=== PATIENT | male | born 1935 | race Caucasian/White ===

== ENCOUNTER → 2018-01-13 06:52 | Outpatient (CLI) | payer MEDICARE, SELFPAY ==
[2018-01-13 09:23] LABS: Add Manual Diff / Slide Review NO; Basophils Percent Auto 0.4 % (0-2); Eosinophils Percent Auto 3.7 % (2-4); Hematocrit 38.9 % (41-53); Hemoglobin 13.2 g/dL (13.5-17.5); Mean Corpuscular HGB Conc 33.8 % (30-36); Mean Corpuscular Hemoglobin 32.3 PG (26-34); Mean Corpuscular Volume 95.4 fL (80-100); Monocytes Percent Auto 7.8 % (3-14); Neutrophils Absolute Auto 3900 /uL (3000-5900); Neutrophils Percent Auto 66.1 % (50-75); Platelet Count 112 X10^3/uL (150-400); Red Blood Cell Count 4.08 X10^6/uL (4.5-5.9); Red Cell Distribution Width 13.2 % (11.6-14.8); White Blood Cell Count 5.8 X10^3/uL (4.5-11.0)
[2018-01-13 09:28] LABS: Alanine Aminotransferase 39 IU/L (21-72); Albumin 4.2 g/dL (3.5-5.0); Albumin Globulin Ratio 1.4 (1.0-2.8); Alkaline Phosphatase 72 U/L (38-126); BUN Creatinine Ratio 23.6 (6-22); Bilirubin Total 0.7 mg/dL (0.2-1.3); Blood Urea Nitrogen 26 mg/dL (9-20); Calcium 8.4 mg/dL (8.4-10.2); Carbon Dioxide 27 mmol/L (22-32); Chloride 107 mmol/L (98-107); Cholesterol 119 mg/dL (140-199); Estimated Glomerular Filt Rate > 60.0 mL/min (>60); Globulin 2.9 g/dL (1.7-4.1); Glucose 80 mg/dL (80-110); HDL Cholesterol 51 mg/dL (40-60); LDL Cholesterol Calculated 51 mg/dL (<100); Sodium 145 mmol/L (137-145); Total Protein 7.1 g/dL (6.3-8.2); Triglycerides 83 mg/dL (35-150); Uric Acid 5.8 mg/dL (3.5-8.5)
[2018-01-13 09:30] LABS: Aspartate Aminotransferase 34 IU/L (17-59); HEMOLYSIS 57 (0-50); Potassium 4.5 mmol/L (3.4-5.1)
== END ==
PROVIDERS: PCP Internal Medicine; Visit Provider Internal Medicine
DX: M81.0 Age-related osteoporosis without current pathological fracture (principal); E78.00 Pure hypercholesterolemia, unspecified; I10 Essential (primary) hypertension
CPT/HCPCS: 36415; 80053; 80061; 84550; 85025

== ENCOUNTER → 2019-08-29 15:40 | Outpatient (ROUT) | payer MEDICARE, SELFPAY ==
[2019-08-29 15:57] LABS: Add Manual Diff / Slide Review NO; Basophils Absolute Auto 0 /uL (0-100); Basophils Percent Auto 0.4 % (0-2); Eosinophils Absolute Auto 200 /uL (0-450); Eosinophils Percent Auto 2.8 % (2-4); Hematocrit 40.9 % (41-53); Lymphocytes Absolute Auto 1300 /uL (1100-4500); Lymphocytes Percent Auto 20.1 % (25-40); Mean Corpuscular HGB Conc 34.2 % (30-36); Mean Corpuscular Hemoglobin 32.3 PG (26-34); Mean Corpuscular Volume 94.4 fL (80-100); Monocytes Absolute Auto 400 /uL (0-900); Monocytes Percent Auto 6.5 % (3-14); Neutrophils Absolute Auto 4700 /uL (1500-7000); Neutrophils Percent Auto 70.2 % (50-75); Platelet Count 116 X10^3/uL (150-400); Red Blood Cell Count 4.33 X10^6/uL (4.5-5.9); Red Cell Distribution Width 12.9 % (11.6-14.8); White Blood Cell Count 6.7 X10^3/uL (4.5-11.0)
[2019-08-29 17:08] LABS: Aspartate Aminotransferase 24 IU/L (17-59); Blood Urea Nitrogen 32 mg/dL (9-20); Calcium 9.1 mg/dL (8.4-10.2); Carbon Dioxide 27 mmol/L (22-32); Chloride 104 mmol/L (98-107); Cholesterol 119 mg/dL (140-199); Estimated Glomerular Filt Rate 41.6 mL/min (>60); Glucose 94 mg/dL (80-110); HDL Cholesterol 41 mg/dL (40-60); HEMOLYSIS < 15 (0-50); LDL Cholesterol Calculated 41 mg/dL (<100); Potassium 3.9 mmol/L (3.4-5.1); Sodium 142 mmol/L (137-145); Triglycerides 183 mg/dL (35-150)
== END ==
PROVIDERS: Family Provider Internal Medicine; PCP Internal Medicine; Visit Provider Internal Medicine
DX: I10 Essential (primary) hypertension (principal); E78.2 Mixed hyperlipidemia; D69.6 Thrombocytopenia, unspecified
CPT/HCPCS: 80048; 80061; 84450; 85025

== ENCOUNTER → 2020-10-30 18:44 | Outpatient (ROUT) | payer MEDICARE, SELFPAY ==
[2020-10-30 19:37] LABS: Add Manual Diff / Slide Review NO; Basophils Absolute Auto 0 /uL (0-100); Basophils Percent Auto 0.4 % (0-2); Eosinophils Absolute Auto 100 /uL (0-450); Eosinophils Percent Auto 1.6 % (2-4); Hematocrit 40.2 % (41-53); Hemoglobin 13.6 g/dL (13.5-17.5); Lymphocytes Absolute Auto 1300 /uL (1100-4500); Lymphocytes Percent Auto 15.4 % (25-40); Mean Corpuscular HGB Conc 33.8 % (30-36); Mean Corpuscular Hemoglobin 32.2 PG (26-34); Mean Corpuscular Volume 95.2 fL (80-100); Monocytes Absolute Auto 600 /uL (0-900); Monocytes Percent Auto 7.3 % (3-14); Neutrophils Absolute Auto 6200 /uL (1500-7000); Neutrophils Percent Auto 75.3 % (50-75); Platelet Count 127 X10^3/uL (150-400); Red Blood Cell Count 4.22 X10^6/uL (4.5-5.9); White Blood Cell Count 8.3 X10^3/uL (4.5-11.0)
[2020-10-30 19:46] LABS: Aspartate Aminotransferase 28 IU/L (17-59); BUN Creatinine Ratio 23.5 (6-22); Blood Urea Nitrogen 31 mg/dL (9-20); Calcium 9.1 mg/dL (8.4-10.2); Carbon Dioxide 29 mmol/L (22-32); Chloride 106 mmol/L (98-107); Cholesterol 121 mg/dL (140-199); Estimated Glomerular Filt Rate 51.8 mL/min (>60); Glucose 93 mg/dL (80-110); HDL Cholesterol 53 mg/dL (40-60); HEMOLYSIS < 15 (0-50); LDL Cholesterol Calculated 33 mg/dL (<100); Phosphorous 3.1 mg/dL (2.3-3.7); Potassium 4.6 mmol/L (3.4-5.1); Sodium 143 mmol/L (137-145); Triglycerides 175 mg/dL (35-150)
[2020-10-31 09:38] LABS: Parathyroid Hormone Int 222 pg/mL (15-65)
== END ==
PROVIDERS: Family Provider Internal Medicine; PCP Internal Medicine; Visit Provider Internal Medicine
DX: N18.30 Chronic kidney disease, stage 3 unspecified (principal); E78.2 Mixed hyperlipidemia
CPT/HCPCS: 80048; 80061; 83970; 84100; 84450; 85025

== ENCOUNTER → 2021-05-16 15:37 | Outpatient (CLI) | payer MEDICARE, SELFPAY ==
[2021-05-16 16:25] LABS: COVID19 -Nasal RAPID Negative (Negative)
== END ==
PROVIDERS: Family Provider Internal Medicine; PCP Internal Medicine; Visit Provider Nurse Practitioner
DX: J02.9 Acute pharyngitis, unspecified (principal); Z20.822 Contact with and (suspected) exposure to COVID-19
CPT/HCPCS: 87070; 87635

== ENCOUNTER → 2021-09-23 11:22 | Outpatient (CLI) | payer MEDICARE, SELFPAY ==
[2021-09-23 16:53] LABS: COVID19 -Nasal RAPID Negative (Negative)
== END ==
PROVIDERS: Family Provider Internal Medicine; PCP Internal Medicine; Visit Provider Student in an Organized Health Care Education/Training Program
DX: Z20.822 Contact with and (suspected) exposure to COVID-19 (principal)
CPT/HCPCS: 87635

== ENCOUNTER → 2022-03-30 09:34 | Outpatient (CLI) | payer MEDICARE, SELFPAY ==
--- NOTE | 2022-03-30 | DI.US.S_ITS ---
PROCEDURE: US RENAL COMPLETE INDICATIONS: Secondary hyperparathyroidism of renal origin TECHNIQUE: Real-time scanning was performed of the kidneys and bladder, with image documentation. COMPARISON: None. FINDINGS: Kidneys: Right kidney measures 10.2 cm. Left kidney measures 10.8 cm. No right hydronephrosis. Normal right cortical thickness. Normal left cortical thickness. Simple appearing left renal cysts measuring up to 1.3 cm. There is a left 7 mm mid region nonobstructing calculus. Bladder: Not well seen due to under distention. Miscellaneous: No free pelvic fluid. IMPRESSION: No hydronephrosis bilaterally. Left 7 mm mid region nonobstructing calculus. Bladder is not well seen due to underdistention. Dictated by: Turner Doyle M.D. on 03/30/2022 at 12:29 Approved by: Turner Doyle M.D. on 03/30/2022 at 12:36
== END ==
PROVIDERS: Family Provider Internal Medicine; PCP Internal Medicine; Referring Provider Internal Medicine; Visit Provider Internal Medicine
DX: N25.81 Secondary hyperparathyroidism of renal origin (principal); N18.30 Chronic kidney disease, stage 3 unspecified; N20.0 Calculus of kidney
CPT/HCPCS: 76770

== ENCOUNTER → 2022-05-14 13:28 | Outpatient (CLI) | payer MEDICARE, SELFPAY ==
[2022-05-14 13:50] LABS: COVID19 -Nasal RAPID Negative (Negative)
== END ==
PROVIDERS: Family Provider Internal Medicine; PCP Internal Medicine; Visit Provider Student in an Organized Health Care Education/Training Program
DX: Z20.822 Contact with and (suspected) exposure to COVID-19 (principal)
CPT/HCPCS: 87635

== ENCOUNTER → 2022-05-15 10:27 | Outpatient (CLI) | payer MEDICARE, SELFPAY ==
--- NOTE | 2022-05-15 10:28 | DI.RAD.S_ITS ---
PROCEDURE: XR CHEST 2V INDICATIONS: chest pain on breathing TECHNIQUE: 2 views of the chest were acquired. COMPARISON: [facility], , CHEST 2 VIEW, 04/09/2015, 10:18. FINDINGS: Surgical changes and devices: None. Lungs and pleura: Left hemidiaphragm elevation and left basilar atelectasis. No focal consolidation. No pleural effusions or pneumothorax. Mediastinum: Mediastinal contours are normal. Heart size is normal. Bones and chest wall: No suspicious bony abnormalities. Soft tissues appear unremarkable. IMPRESSION: 1. No acute cardiopulmonary disease. 2. Left hemidiaphragm elevation and left basilar atelectasis. Dictated by: Valente Llanos M.D. on 05/15/2022 at 10:42 Approved by: Valente Llanos M.D. on 05/15/2022 at 10:43
[2022-05-15 11:20] LABS: Add Manual Diff / Slide Review NO; Basophils Absolute Auto 0 /uL (0-100); Basophils Percent Auto 0.3 % (0-2); Eosinophils Absolute Auto 0 /uL (0-450); Eosinophils Percent Auto 0.4 % (2-4); Hematocrit 38.8 % (41-53); Hemoglobin 12.8 g/dL (13.5-17.5); Lymphocytes Absolute Auto 1300 /uL (1100-4500); Lymphocytes Percent Auto 11.8 % (25-40); Mean Corpuscular Hemoglobin 31.2 PG (26-34); Mean Corpuscular Volume 94.8 fL (80-100); Monocytes Absolute Auto 1400 /uL (0-900); Neutrophils Absolute Auto 8500 /uL (1500-7000); Neutrophils Percent Auto 75.5 % (50-75); Platelet Count 139 X10^3/uL (150-400); Red Blood Cell Count 4.09 X10^6/uL (4.5-5.9); White Blood Cell Count 11.2 X10^3/uL (4.5-11.0)
[2022-05-15 11:25] LABS: Hematocrit 37.9 % (41-53); Hemoglobin 12.7 g/dL (13.5-17.5)
[2022-05-15 11:38] LABS: Alanine Aminotransferase 12 IU/L (<50); Albumin 4.2 g/dL (3.5-5.0); Albumin Globulin Ratio 1.2 (1.0-2.8); Alkaline Phosphatase 89 U/L (38-126); Aspartate Aminotransferase 18 IU/L (17-59); Bilirubin Total 1.3 mg/dL (0.2-1.3); Blood Urea Nitrogen 38 mg/dL (9-20); Carbon Dioxide 26 mmol/L (22-32); Chloride 101 mmol/L (98-107); Creatine Kinase 55 U/L (55-170); Estimated Glomerular Filt Rate 36 mL/min (>60); Globulin 3.4 g/dL (1.7-4.1); Glucose 96 mg/dL (80-110); HEMOLYSIS < 15 (0-50); Potassium 4.8 mmol/L (3.4-5.1); Sodium 139 mmol/L (137-145); Total Protein 7.6 g/dL (6.3-8.2)
[2022-05-15 11:48] LABS: NT-proBNP (BNP-Adult 18+) 2010 pg/mL (<450); Troponin I 0.039 ng/mL (0.01-0.034)
[2022-05-15 12:18] LABS: BUN Creatinine Ratio 20.8 (6-22); Blood Urea Nitrogen 37 mg/dL (9-20); Calcium 9.1 mg/dL (8.4-10.2); Carbon Dioxide 26 mmol/L (22-32); Chloride 102 mmol/L (98-107); Estimated Glomerular Filt Rate 37 mL/min (>60); Glucose 93 mg/dL (80-110); HEMOLYSIS < 15 (0-50); Potassium 4.5 mmol/L (3.4-5.1); Sodium 140 mmol/L (137-145)
[2022-05-15 12:19] LABS: Creatinine Urine Random 222.3 mg/dL; Protein (Total) Urine Random 10 mg/dL (0-12); Protein Creatinine Ratio Urine 0.04 GRAM/24H
== END ==
PROVIDERS: Family Provider Internal Medicine; PCP Internal Medicine; Referring Provider Student in an Organized Health Care Education/Training Program; Visit Provider Student in an Organized Health Care Education/Training Program
DX: R07.1 Chest pain on breathing (principal); J98.11 Atelectasis; R53.83 Other fatigue
CPT/HCPCS: 36415; 71046; 80048; 80053; 82550; 82570; 83880; 84156; 84484; 85014; 85018; 85025

== ENCOUNTER 2022-05-16 09:26 | Observation (INO) | payer MEDICARE, SELFPAY ==
[2022-05-16] VITALS (14 sets, daily range): BP systolic 103–140; BP diastolic 49–67; PULSE 63–73; RESP 16–27; TEMP 36.4–37.2; O2SAT 96–100; BMI 29.1
--- NOTE | 2022-05-16 10:03 | ED.CHESTPAIN ---
HPI - Chest Pain General Chief Complaint: Chest Pain Stated Complaint: Told to come per his lab results Time Seen by Provider: 05/16/22 09:33 Source: patient Mode of arrival: Ambulatory Limitations: no limitations Limitations: no limitations History of Present Illness HPI narrative: The patient presents with recent episode of chest discomfort. He awoke 2 mornings ago, with upper chest tightness. He was not having dyspnea, cough, URI symptoms, fever or chills. He has a history of hypertension, and hyperlipidemia. He has no history of CAD, CHF or arrhythmia. He also has history of renal insufficiency. He was seen to walk-in clinic, ER evaluation was suggested, but declined by the patient. Labs were drawn. He had a minimally elevated troponin. At the encouragement of walk-in clinic, he is here now for repeat evaluation. He says he feels fine today. He has no chest discomfort, no dyspnea, no palpitations. He has no orthopnea and no peripheral edema. He denies GI symptoms. He has no rashes. He is oriented, he is a good historian. Related Data Home Medications Medication Instructions Recorded Confirmed allopurinol 100 mg tablet 100 mg PO DAILY 05/16/22 05/16/22 losartan 50 mg-hydrochlorothiazide 1 tab PO DAILY 05/16/22 05/16/22 12.5 mg tablet simvastatin 40 mg tablet 40 mg PO DAILY 05/16/22 05/16/22 Allergies Allergy/AdvReac Type Severity Reaction Status Date / Time Penicillins Allergy Intermediate hives Verified 05/14/22 13:05 Review of Systems Review of Systems ROS Unobtainable: All systems reviewed & are unremarkable except as noted in HPI and below Patient History Medical History Hyperlipidemia Hypertension Renal insufficiency Social History household members: spouse Smoking Status: Former smoker alcohol intake: current Smoking Status: Former smoker Exam Initial Vital Signs Initial Vital Signs: Vital Signs Pulse Rate 72 05/16/22 09:56 Pulse Oximetry 99 05/16/22 09:56 Const General: cooperative, healthy appearing, comfortable, well developed and well groomed Nutritional Appearance: average body habitus Orientation: Orientation (normal) [facility] Head: normal to inspection, normocephalic and atraumatic Face and sinus: normal facial exam Mouth: oral mucosae normal and moist mucous membranes Eyes General: Yes appearance normal, both eyes and all related structures Neck Neck: No JVD Chest Chest: normal palpation of entire chest wall Resp Auscultation: clear to auscultation bilaterally Cardio Palpation: normal PMI and abnormal PMI Rate: regular rate Rhythm: regular rhythm Heart Sounds: S1 normal, S2 normal and no murmurs GI Inspection: normal to inspection Palpation: No mass and No tender Auscultation: normal bowel sounds Back/Spine/Pelvis Back: normal to inspection, back tenderness and No CVA tenderness Thoracic/Lumbar Spine: thoracic and lumbar spine normal to inspection Skin General: no rashes or lesions noted Neuro General: patient alert, patient awake, patient oriented x3 and no focal motor deficits Extrem General: normal to inspection, full ROM, no pedal edema and no calf tenderness Psych Appearance: grossly normal Course Course Course Narrative: Patient had a troponin level of 0.0392 days ago at the walk-in clinic. He is asymptomatic after arrival here. There are no significant EKG changes. Troponin is 0.142, I BP is 0 0.126. He has a recent MO. I discussed the situation with Cardiology, Dr. Florian, as well as hospitalist, Dr. Padilla. Aspirin had been started after the patient arrived. He was given atorvastatin, Lopressor, and Plavix. Cardiology suggest echocardiogram, which is not available to morning. Our hospitalist admitted him for monitoring, and ongoing care including the echocardiogram. If the echo is favorable, the patient can be discharged to outpatient follow-up. Orders Ordered: ED Orders 05/16/22 12:07 Troponin I Stat Acetaminophen (Acetaminophen 325 Mg Tablet) 650 mg PO Q6HR LETITIA Last Admin: 05/16/22 18:38 Dose: 650 mg Documented By: TABATHA Aspirin (Aspirin Ec 81 Mg Tablet) 81 mg PO DAILY LETITIA Atorvastatin Calcium (Atorvastatin 20 Mg Tablet) 80 mg PO BEDTIME [facility] Enoxaparin Sodium (Enoxaparin 40 Mg/0.4 Ml Syringe) 40 mg SUBCUT DAILY [facility] Ondansetron HCl (Ondansetron 4 Mg/2 Ml Inj) 4 mg IV Q8HR PRN PRN Reason: Nausea And Vomiting Discontinued Medications Aspirin (Aspirin 81 Mg Chew Tab) 324 mg PO NOW ONE Stop: 05/16/22 13:46 Last Admin: 05/16/22 13:52 Dose: 324 mg Documented By: JOHNY Atorvastatin Calcium (Atorvastatin 20 Mg Tablet) 40 mg PO NOW ONE Stop: 05/16/22 14:18 Last Admin: 05/16/22 14:37 Dose: 40 mg Documented By: JOHNY(2) Clopidogrel Bisulfate (Clopidogrel 75 Mg Tablet) 300 mg PO NOW ONE Stop: 05/16/22 14:17 Last Admin: 05/16/22 14:37 Dose: 300 mg Documented By: RLS(2) Metoprolol Tartrate (Metoprolol Ir 25 Mg Tablet) 25 mg PO NOW ONE Stop: 05/16/22 14:17 Last Admin: 05/16/22 14:37 Dose: 25 mg Documented By: JOHNY(2) Vital Signs Vital signs: Vital Signs - 8 hr 05/16/22 12:30 05/16/22 12:30 Pulse Rate 64 Respiratory Rate 22 Blood Pressure 113/61 Pulse Oximetry 100 MDM - Chest Pain Lab Data Result diagrams: 05/16/22 10:00 05/16/22 10:00 Labs: Lab Results 05/16/22 05/16/22 05/16/22 Range/Units 10:00 10:00 10:00 WBC 10.5 (4.5-11.0) X10^3/uL RBC 3.97 L (4.5-5.9) X10^6/uL Hgb 12.5 L (13.5-17.5) g/dL Hct 37.3 L (41-53) % MCV 93.9 (80-100) fL MCH 31.5 (26-34) PG MCHC 33.5 (30-36) % RDW 12.8 (11.6-14.8) % Plt Count 130 L (150-400) X10^3/uL Neut % (Auto) 80.0 H (50-75) % Lymph % (Auto) 9.1 L (25-40) % [place] % (Auto) 10.2 (3-14) % Eos % (Auto) 0.5 L (2-4) % Baso % (Auto) 0.2 (0-2) % Neut # (Auto) 8400 H (4520-2427) /uL Lymph # (Auto) 1000 L (4340-7195) /uL [place] # (Auto) 1100 H (0-900) /uL Eos # (Auto) 100 (0-450) /uL Baso # (Auto) 0 (0-100) /uL D-Dimer 797 H (<500) ng/ml Sodium 139 (137-145) mmol/L Potassium 3.8 (3.4-5.1) mmol/L Chloride 104 (98-107) mmol/L Carbon Dioxide 23 (22-32) mmol/L BUN 44 H (9-20) mg/dL Creatinine 1.76 H (0.66-1.25) mg/dL Estimated GFR 37 L (>60) mL/min BUN/Creatinine Ratio 25.0 H (6-22) Glucose 107 (80-110) mg/dL Calcium 8.8 (8.4-10.2) mg/dL Magnesium 2.1 (1.6-2.3) mg/dL Total Bilirubin 0.9 (0.2-1.3) mg/dL AST 17 (17-59) IU/L ALT 12 (<50) IU/L Alkaline Phosphatase 87 (38-126) U/L Total Creatine Kinase 72 (55-170) U/L CK-MB (CK-2) TNP CK-MB (CK-2) Rel Index TNP Troponin I 0.142 H* (0.01-0.034) ng/mL Total Protein 7.6 (6.3-8.2) g/dL Albumin 4.2 (3.5-5.0) g/dL Globulin 3.4 (1.7-4.1) g/dL Albumin/Globulin Ratio 1.2 (1.0-2.8) Lipase 103 (23-300) U/L 05/16/22 Range/Units 12:07 WBC (4.5-11.0) X10^3/uL RBC (4.5-5.9) X10^6/uL Hgb (13.5-17.5) g/dL Hct (41-53) % MCV (80-100) fL MCH (26-34) PG MCHC (30-36) % RDW (11.6-14.8) % Plt Count (150-400) X10^3/uL Neut % (Auto) (50-75) % Lymph % (Auto) (25-40) % [place] % (Auto) (3-14) % Eos % (Auto) (2-4) % Baso % (Auto) (0-2) % Neut # (Auto) (6458-0400) /uL Lymph # (Auto) (3742-9151) /uL [place] # (Auto) (0-900) /uL Eos # (Auto) (0-450) /uL Baso # (Auto) (0-100) /uL D-Dimer (<500) ng/ml Sodium (137-145) mmol/L Potassium (3.4-5.1) mmol/L Chloride (98-107) mmol/L Carbon Dioxide (22-32) mmol/L BUN (9-20) mg/dL Creatinine (0.66-1.25) mg/dL Estimated GFR (>60) mL/min BUN/Creatinine Ratio (6-22) Glucose (80-110) mg/dL Calcium (8.4-10.2) mg/dL Magnesium (1.6-2.3) mg/dL Total Bilirubin (0.2-1.3) mg/dL AST (17-59) IU/L ALT (<50) IU/L Alkaline Phosphatase (38-126) U/L Total Creatine Kinase (55-170) U/L CK-MB (CK-2) CK-MB (CK-2) Rel Index Troponin I 0.126 H* (0.01-0.034) ng/mL Total Protein (6.3-8.2) g/dL Albumin (3.5-5.0) g/dL Globulin (1.7-4.1) g/dL Albumin/Globulin Ratio (1.0-2.8) Lipase (23-300) U/L Imaging Data Chest x-ray: Radiologist's Impression: 1. No acute cardiopulmonary disease. 2. Left hemidiaphragm elevation and left basilar atelectasis. ECG Data Attestation: I personally reviewed and interpreted this ECG as follows: (Normal sinus rhythm rate 70 beats per minute. Nonspecific IVCD. No ectopy. No acute ST T wave changes.) Critical Care Time Critical Care Time Critical Care Time: Yes Total Critical Care Time: 65 Attestation: Critical care time included the initial patient evaluation, review of lab, EKG and x-ray data, discussion the situation with the patient, and physician consultation as noted above. Discharge Plan Departure Patient Disposition: Admitted as Observation Clinical Impression: Non-ST elevated myocardial infarction (non-STEMI) Admit Date/Time: 05/16/22 14:26 Admit Provider: Joe Penny
[2022-05-16 10:18] LABS: Add Manual Diff / Slide Review NO; Basophils Absolute Auto 0 /uL (0-100); Basophils Percent Auto 0.2 % (0-2); Eosinophils Absolute Auto 100 /uL (0-450); Eosinophils Percent Auto 0.5 % (2-4); Hematocrit 37.3 % (41-53); Hemoglobin 12.5 g/dL (13.5-17.5); Lymphocytes Absolute Auto 1000 /uL (1100-4500); Lymphocytes Percent Auto 9.1 % (25-40); Mean Corpuscular HGB Conc 33.5 % (30-36); Mean Corpuscular Hemoglobin 31.5 PG (26-34); Mean Corpuscular Volume 93.9 fL (80-100); Monocytes Absolute Auto 1100 /uL (0-900); Monocytes Percent Auto 10.2 % (3-14); Neutrophils Absolute Auto 8400 /uL (1500-7000); Platelet Count 130 X10^3/uL (150-400); Red Blood Cell Count 3.97 X10^6/uL (4.5-5.9); Red Cell Distribution Width 12.8 % (11.6-14.8); White Blood Cell Count 10.5 X10^3/uL (4.5-11.0)
[2022-05-16 10:25] LABS: Alanine Aminotransferase 12 IU/L (<50); Albumin 4.2 g/dL (3.5-5.0); Albumin Globulin Ratio 1.2 (1.0-2.8); Alkaline Phosphatase 87 U/L (38-126); Aspartate Aminotransferase 17 IU/L (17-59); Bilirubin Total 0.9 mg/dL (0.2-1.3); Blood Urea Nitrogen 44 mg/dL (9-20); Calcium 8.8 mg/dL (8.4-10.2); Carbon Dioxide 23 mmol/L (22-32); Chloride 104 mmol/L (98-107); Creatine Kinase 72 U/L (55-170); D Dimer 797 ng/ml (<500); Estimated Glomerular Filt Rate 37 mL/min (>60); Globulin 3.4 g/dL (1.7-4.1); Glucose 107 mg/dL (80-110); HEMOLYSIS < 15 (0-50); Lipase 103 U/L (23-300); Magnesium 2.1 mg/dL (1.6-2.3); Potassium 3.8 mmol/L (3.4-5.1); Sodium 139 mmol/L (137-145); Total Protein 7.6 g/dL (6.3-8.2)
[2022-05-16 10:52] LABS: Troponin I 0.142 ng/mL (0.01-0.034)
[2022-05-16 13:03] LABS: Troponin I 0.126 ng/mL (0.01-0.034)
[2022-05-16] MEDS: ASPIRIN 81 MG CHEW TAB 324 MG PO (13:52)
[2022-05-16] MEDS: METOPROLOL IR 25 MG TABLET PO (14:37)
[2022-05-16] MEDS: ATORVASTATIN 20 MG TABLET 40 MG PO (14:37)
[2022-05-16] MEDS: CLOPIDOGREL 75 MG TABLET 300 MG PO (14:37)
[2022-05-16 15:04] LABS: COVID19 -Nasal RAPID Negative (Negative)
--- NOTE | 2022-05-16 15:20 | DI.ECHO.S_ITS ---
[facility] +---------+ : : [address] : : : : [place] : : : : [id number] : : : : Phone: [phone] Echocardiogram Report + + :Name: FLO BLACKWOOD Study Date: 05/17/2022 Height: 73 in : :[facility] ReadingLocation: Weight: 221 lb : : Gender: Male BSA: 2.2 m2 : :: 1935 Age: 86 yrs BP: 103/57 mmHg: :Reason For Study: NSTEMI : :Ordering Physician: : :FELIPE GAONA Performed By: Lloyd Solorzano : :Referring: FELIPE GAONA : + + Interpretation Summary The left ventricle is normal in size. Left ventricular systolic function is normal. The ejection fraction is estimated to be 55-60%. The LV is off axis on parasternal views but there appears to a small area of prior infarction along the basal or mid inferolateral segment. The right ventricle is normal in size and function. Pulmonary artery pressures cannot be estimated because of the lack of a measurable TR jet velocity. Both atria are normal in size. There is mild mitral regurgitation. There is mild aortic regurgitation. There is no other significant valvular heart disease. The aortic root is borderline dilated. If clinically warranted, consider ischemic workup with either treadmill nuclear or pharmacological nuclear stress test. Procedure: A two-dimensional transthoracic echocardiogram with color flow and Doppler was performed. The study quality was technically difficult. There is no prior echocardiogram noted for this patient. The patient was in atrial fibrillation with controlled ventricular rate during the exam. Left Ventricle: The left ventricle is normal in size. Left ventricular systolic function is normal. The ejection fraction is estimated to be 55-60%. The LV is off axis on parasternal views but there appears to a small area of prior infarction along the basal or mid inferolateral segment. Diastolic function could not be accurately assessed due to unobtainable data. Right Ventricle: The right ventricle is normal in size and function. Atria: Both atria are normal in size. Mitral Valve: There is mild mitral annular calcification. There is mild mitral regurgitation. Aortic Valve: There is mild aortic valve sclerosis. There is mild aortic regurgitation. There is an eccentric jet of aortic insufficiency directed against the anterior mitral leaflet. Tricuspid Valve: The tricuspid valve is not well visualized, but is grossly normal. No tricuspid regurgitation. Pulmonary artery pressures cannot be estimated because of the lack of a measurable TR jet velocity. Pulmonic Valve: The pulmonic valve is not well seen, but is grossly normal. There is trace pulmonic regurgitation. There is no other significant valvular heart disease. Great Vessels: The aortic root is borderline dilated. The ascending aorta could not be visualized. The inferior vena cava was not visualized. Pericardium/ Pleura There is no pericardial effusion. There is no pleural effusion. MMode/2D Measurements & Calculations LVIDd: 4.4 cm LVOT diam: 2.5 cm LVIDs: 2.8 cm Ao root diam: 4.0 cm FS: 35.9 % IVSd: 1.3 cm LVPWd: 1.4 cm LV bar. diameter/BSA (cm/m^2): 2.0 LV sys. diameter/BSA (cm/m^2): 1.3 LA A2 area: 16.1 cm2 RA long axis: 5.0 cm LA A4 area: 19.3 cm2 RA area: 15.3 cm2 LA length (vol): 4.9 cm RA vol: 39.8 ml LA vol: 54.3 ml RA : 17.7 ml/m2 LA vol index: 24.2 ml/m2 Doppler Measurements & Calculations Ao V2 max: 101.4 cm/sec LVOT Max Gregg: 71.9 cm/sec Ao V2 mean: 77.0 cm/sec LV V1 max P.1 mmHg Ao max P.1 mmHg LV V1 VTI: 12.8 cm Ao mean P.6 mmHg WALDO(I,D): 3.6 cm2 Ao V2 VTI: 17.0 cm WALDO(V,D): 3.4 cm2 sev ratio: 0.75 WALDO indexed to BSA (cm^2/m^2): 1.6 SV(LVOT): 61.2 ml Reading Physician:11:54 AM
--- NOTE | 2022-05-16 16:35 | P.HP_ITS ---
History of Present Illness History of Present Illness Date Patient Seen: 05/16/22 Time Patient Seen: 14:00 Chief complaint: Told to come per his lab results Narrative: Mr. Nicole is a 86M with PMH HTN, HL, CKD who presents to the hospital for chest tightness. He began having chest tightness and weakness that was generalized two days ago. He did not have cough, shortness of breath, fevers/chills. He went to the walk in clinic, was recommended to go to the ED bu t declined. He ultimately left the walk in clinic after labs were drawn. These resulted in borderline elevated troponin. Because of this he was recommended to come to the ED. Today he is feeling improved with no further chest tightness. In the ED workup was done, vitals notable for afebrile, bp 110s/60s, sats 100% on room air. Labs notable for WBC 10.5, hgb 12.5, plts 130. D-dimer 797. Na 139, BUN 44, creatinine 1.76. Trop 0.142, then 0.126. He was ordered for plavix, statin, and metoprolol. Cardiology was called and recommended ECHO to be done to determine necessity and urgency of cardiac cath. He was admitted for further treatment. Family history: Mother with CAD Patient History Medical History Hyperlipidemia Hypertension Renal insufficiency Family & Social History Social History: household members spouse Prior Living Arrangements House Safety & Behavioral: Feels Safe in Current Yes Environment Been Physically Hurt or No Threatened By a Person Tobacco & Substance use: Tobacco type cigarettes Smoking Status Former smoker alcohol intake current alcohol intake frequency 0-2 drinks per day Substance Use Type does not use Meds Home Medications and Allergies Home Medications Medication Instructions Recorded Confirmed Type allopurinol 100 mg tablet 100 mg PO DAILY 05/16/22 05/16/22 History losartan 50 mg-hydrochlorothiazide 1 tab PO DAILY 05/16/22 05/16/22 History 12.5 mg tablet simvastatin 40 mg tablet 40 mg PO DAILY 05/16/22 05/16/22 History Allergies Allergy/AdvReac Type Severity Reaction Status Date / Time Penicillins Allergy Intermediate hives Verified 05/14/22 13:05 Review of Systems Review of Systems Narrative: 14 systems reviewed and negative aside from what is noted in HPI Exam Vital Signs (past 8 hours): - 10/08/22 10:01 05/16/22 09:56 05/16/22 10:00 Temperature 97.5 F L Pulse Rate 70 72 73 Respiratory Rate 18 22 Blood Pressure 140/61 Pulse Oximetry 99 99 97 Oxygen Delivery Method Room Air 05/16/22 10:30 05/16/22 10:42 05/16/22 10:42 Temperature Pulse Rate 66 65 Respiratory Rate 21 21 Blood Pressure 111/54 L Pulse Oximetry 96 96 Oxygen Delivery Method 05/16/22 11:00 05/16/22 11:00 05/16/22 11:30 Temperature Pulse Rate 64 63 Respiratory Rate 24 18 Blood Pressure 103/59 L Pulse Oximetry 97 99 Oxygen Delivery Method 05/16/22 11:31 05/16/22 11:31 05/16/22 12:00 Temperature Pulse Rate 64 Respiratory Rate 17 Blood Pressure 111/55 L 110/57 L Pulse Oximetry 99 Oxygen Delivery Method 05/16/22 12:00 05/16/22 12:30 05/16/22 12:30 Temperature Pulse Rate 66 64 Respiratory Rate 27 H 22 Blood Pressure 113/61 Pulse Oximetry 98 100 Oxygen Delivery Method 05/16/22 15:52 Temperature 97.8 F Pulse Rate 64 Respiratory Rate 19 Blood Pressure 112/67 Pulse Oximetry 100 Oxygen Delivery Method Oxygen Delivery Method Room Air Narrative Exam Narrative: GEN: no acute distress HEENT: moist mucous membranes, PERRL NECK: trachea midline, no JVD PULM: clear bilaterally, no wheezes, rhonchi, rales CV: regular rate and rhythm, no murmurs ABD: soft, nontender, nondistended, no organomegaly EXT: warm and well perfused with no edema NEURO: awake, alert, oriented, no focal deficits Objective Labs Result Diagrams: 05/16/22 10:00 05/16/22 10:00 Labs: Laboratory Results - last 24 hr 05/16/22 05/16/22 05/16/22 10:00 10:00 10:00 WBC 10.5 RBC 3.97 L Hgb 12.5 L Hct 37.3 L MCV 93.9 MCH 31.5 MCHC 33.5 RDW 12.8 Plt Count 130 L Neut % (Auto) 80.0 H Lymph % (Auto) 9.1 L [place] % (Auto) 10.2 Eos % (Auto) 0.5 L Baso % (Auto) 0.2 Neut # (Auto) 8400 H Lymph # (Auto) 1000 L [place] # (Auto) 1100 H Eos # (Auto) 100 Baso # (Auto) 0 D-Dimer 797 H Sodium 139 Potassium 3.8 Chloride 104 Carbon Dioxide 23 BUN 44 H Creatinine 1.76 H Estimated GFR 37 L BUN/Creatinine Ratio 25.0 H Glucose 107 Calcium 8.8 Magnesium 2.1 Total Bilirubin 0.9 AST 17 ALT 12 Alkaline Phosphatase 87 Total Creatine Kinase 72 CK-MB (CK-2) TNP CK-MB (CK-2) Rel Index TNP Troponin I 0.142 H* Total Protein 7.6 Albumin 4.2 Globulin 3.4 Albumin/Globulin Ratio 1.2 Lipase 103 SARS-CoV-2 (PCR) 05/16/22 05/16/22 12:07 14:28 WBC RBC Hgb Hct MCV MCH MCHC RDW Plt Count Neut % (Auto) Lymph % (Auto) [place] % (Auto) Eos % (Auto) Baso % (Auto) Neut # (Auto) Lymph # (Auto) [place] # (Auto) Eos # (Auto) Baso # (Auto) D-Dimer Sodium Potassium Chloride Carbon Dioxide BUN Creatinine Estimated GFR BUN/Creatinine Ratio Glucose Calcium Magnesium Total Bilirubin AST ALT Alkaline Phosphatase Total Creatine Kinase CK-MB (CK-2) CK-MB (CK-2) Rel Index Troponin I 0.126 H* Total Protein Albumin Globulin Albumin/Globulin Ratio Lipase SARS-CoV-2 (PCR) Negative Assessment & Plan Assessment & Plan narrative: 1. Chest pressure and probable NSTEMI -patient developed chest pressure a couple days ago, now asymptomatic -troponin significantly elevated at 0.142, now downtrending -EKG with no acute process -ordered aspirin, statin -order ECHO, if significant abnormalities may need more urgent cardiac cath -keep on telemetry 2. Gout -continue allopurinol 3. 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 Anemia, thrombocytopenia -both apparently chronic -follow up as outpatient -no need for transfusion currently CODE: Full Proxy: Anna Marie Nicole, I have utilized all available resources to reconcile the patient's home medications. Time Spent With Patient Critical Care time: I spent a total of [] minutes of critical care time on this patient's care today; this time is exclusive of procedural time. Quality VTE Deep Vein Thrombosis/Pulmonary Embolism Present on Admission: No MIPS - Admit I confirm the patient?s Advance Care Plan is present, Code status is documented, Surrogate decision maker is in patient?s record [If Yes, STOP here]: Yes
--- NOTE | 2022-05-16 17:29 | PC.NURSE ---
Pt arrived from ED, denies any discomfort. ECHO for tomorrow HL RFA intact/patent. Tele NSR/first degree AVB per ICU staff. to stay in room with pt. Call light w/in reach, pt calls appropriately for needs. Continue w/plan of care.
[2022-05-16] MEDS: ACETAMINOPHEN 325 MG TABLET 650 MG PO (18:38)
[2022-05-17] MEDS: ACETAMINOPHEN 325 MG TABLET 650 MG PO ×2 (00:26→06:53)
[2022-05-17 05:18] VITALS: BP 105/57; PULSE 69; RESP 19; TEMP 36.5; O2SAT 99
--- NOTE | 2022-05-17 05:58 | PC.NURSE ---
Pt corperative w/ staff and care, at bedside. Pt is wifes full time staff interpreter caregiver, giving care to while here. RN was asked to give her medication, Rn educated that is not aloud for us to give them to her. Pt understands plan of care.
[2022-05-17 07:00] VITALS: O2SAT 96
[2022-05-17 07:39] LABS: Add Manual Diff / Slide Review NO; Basophils Absolute Auto 0 /uL (0-100); Basophils Percent Auto 0.1 % (0-2); Eosinophils Absolute Auto 100 /uL (0-450); Eosinophils Percent Auto 1.3 % (2-4); Hematocrit 36.8 % (41-53); Hemoglobin 12.5 g/dL (13.5-17.5); Lymphocytes Absolute Auto 1100 /uL (1100-4500); Lymphocytes Percent Auto 10.7 % (25-40); Mean Corpuscular HGB Conc 33.9 % (30-36); Mean Corpuscular Hemoglobin 31.7 PG (26-34); Mean Corpuscular Volume 93.3 fL (80-100); Monocytes Absolute Auto 1100 /uL (0-900); Monocytes Percent Auto 10.6 % (3-14); Neutrophils Absolute Auto 7700 /uL (1500-7000); Neutrophils Percent Auto 77.3 % (50-75); Platelet Count 136 X10^3/uL (150-400); Red Blood Cell Count 3.94 X10^6/uL (4.5-5.9); Red Cell Distribution Width 12.8 % (11.6-14.8); White Blood Cell Count 9.9 X10^3/uL (4.5-11.0)
[2022-05-17 07:56] LABS: BUN Creatinine Ratio 26.6 (6-22); Blood Urea Nitrogen 42 mg/dL (9-20); Calcium 8.8 mg/dL (8.4-10.2); Carbon Dioxide 24 mmol/L (22-32); Chloride 106 mmol/L (98-107); Estimated Glomerular Filt Rate 43 mL/min (>60); Glucose 91 mg/dL (80-110); HEMOLYSIS < 15 (0-50); Potassium 3.9 mmol/L (3.4-5.1); Sodium 139 mmol/L (137-145)
[2022-05-17 08:00] VITALS: BP 103/57; PULSE 83; RESP 20; TEMP 36.7; O2SAT 96
[2022-05-17] MEDS: ASPIRIN EC 81 MG TABLET PO (09:14)
[2022-05-17 12:00] VITALS: BP 101/55; PULSE 83; RESP 18; TEMP 36.3; O2SAT 98
--- NOTE | 2022-05-17 12:31 | CM.DANOTE ---
Addendum entered by ADELINE Alberts 05/17/22 15:37: ADD: Per MD, pt's results from Echo in the range for safe d/c to home today and outpt follow and does not need to remain in the hospital. Per RN, d/c instructions provided and taken down with spouse to POV and discharged to home. BF Original Note: Patient is an 86 yo male who was admitted on 05/16/22 for Chest Pain r/o. Pt has [facility] for insurance and his PCP is Dr. Humza Herr. EMR was reviewed. Per , pt with chest pain r/o and to have Echo to determine if cardiac cath needed and as an Inpt vs Outpt procedure. SW met bedside with pt and spouse and explained role and they confirm they live in [place] and are active and independent at baseline and pt still drives, does not use DME to ambulate, and denies any hx of HH or SNF. Pt brief in his answers and somewhat flat affect and per RN note may be spouse's primary CG at baseline possibly due to some memory issues? But pt and spouse do not discuss this. Pt hopeful for d/c home today and does not anticipate any needs or have any concerns, just awaiting Echo to be completed. Pt has no hx of admissions to [facility]. Plan: SW to follow for Echo results and POC towards determining any identified discharge planning needs and confirm safe plan of home with spouse when medically stable. ADELINE Alberts Discharge Planning/Care Management CM Discharge Assessment Start: 05/17/22 12:30 Freq: Status: Active Protocol: Document 05/17/22 12:30 BF (Rec: 05/17/22 12:31 [id number]) Discharge Planning Assessment Assigned Pre School Teacher ADELINE Anderson Advance Directives? Yes Advance Directives on File No History Provided By Patient,Significant Other, Medical Record Has Patient been admitted in last 30 No days? Prior Living Arrangements House Household Members spouse Type of transporation used prior to Drives own vehicle admit Independent with ADL's Yes Is patient alert and oriented? Yes Caregiver for Another Yes: spouse, who may have memory issues Barriers to Discharge No Discharge Plan Home Transportation Arrangement Spouse bedside, likely drive via own POV Referrals Initiated None needed Additional Comment Pending Echo results and needs Whiteboard Updated in Patient Room with Yes name and ext. # of Pre School Teacher Review Status In Process Please Provide Date Initial DC 05/17/22 Assessment Was Performed Next Review Type Continued Stay Review
--- NOTE | 2022-05-17 12:47 | P.DS_ITS ---
History of Present Illness History of Present Illness Date Patient Seen: 05/17/22 Chief complaint: Told to come per his lab results Narrative: Per Dr. Penny, Mr. Nicole is a 86M with PMH HTN, HL, CKD who presents to the hospital for chest tightness. He began having chest tightness and weakness that was generalized two days ago. He did not have cough, shortness of breath, fevers/chills. He went to the walk in clinic, was recommended to go to the ED but declined. He ultimately left the walk in clinic after labs were drawn. These resulted in borderline elevated troponin. Because of this he was recommended to come to the ED. Today he is feeling improved with no further chest tightness. In the ED workup was done, vitals notable for afebrile, bp 110s/60s, sats 100% on room air. Labs notable for WBC 10.5, hgb 12.5, plts 130. D-dimer 797. Na 139, BUN 44, creatinine 1.76. Trop 0.142, then 0.126. He was ordered for plavix, statin, and metoprolol. Cardiology was called and recommended ECHO to be done to determine necessity and urgency of cardiac cath. He was admitted for further treatment. Family history: Mother with CAD Discharge Providers Provider Date of admission: 05/16/22 14:26 Discharge Date: 05/17/22 Primary care physician: Humza Herr MD Discharge provider: Devon Gan DO Summary Hospital Course Discharge Diagnosis: 1. Chest pressure, myocardial injury, less likely NSTEMI. Presumed CAD. 2. Gout 3. Hypertension 4. CKD stage 2 or 3 5. Anemia, thrombocytopenia Hospital Course: This is an 86-year-old male with a past medical history of hypertension, gout, CKD, and anemia who presented with chest tightness. He had elevated troponins on admission which had increased from a prior visit a couple of days prior. Repeat troponin after admission had started to downtrend and he did not have chest pain so no further troponins were trended. Cardiology was consulted in the emergency room who recommended echocardiogram for further risk stratification. They did not recommend treatment for NSTEMI given improvement in troponins. Echocardiogram did show some mild wall function abnormalities at the base, though this is consistent with probably an old infarction after discussing with Cardiology. EF was noted to be 55-60%. Cardiology recommended further evaluation with stress testing, though they did state that he could be treated medically and this could be performed at the outpatient setting or as an inpatient. This was discussed with the patient who opted for discharge home with outpatient follow-up. Cardiology did recommend medical management with aspirin, high-intensity statin, and beta-maritza therapy for presumed CAD given imaging findings. His blood pressure was on the low side so his home medications were held in favor of beta maritza therapy. His creatine was elevated but continued to improve over the course of admission, but did not meet the definition for KENNEY as current baseline Cr is unknown. Exam Vital Signs (past 8 hours): - 05/17/22 05:18 05/17/22 08:00 05/17/22 07:00 Temperature 97.7 F 98.0 F Pulse Rate 69 83 Respiratory Rate 19 20 Blood Pressure 105/57 L 103/57 L Pulse Oximetry 99 96 96 Oxygen Delivery Method Room Air Oxygen Flow Rate 0 0 0 Oxygen Delivery Method Room Air Oxygen Flow Rate 0 Narrative Exam Narrative: GEN: no acute distress HEENT: moist mucous membranes, PERRL NECK: trachea midline, no JVD PULM: clear bilaterally, no wheezes, rhonchi, rales CV: regular rate and rhythm, no murmurs ABD: soft, nontender, nondistended, no organomegaly EXT: warm and well perfused with no edema NEURO: awake, alert, oriented, no focal deficits Objective Labs Result Diagrams: 05/17/22 07:00 05/17/22 07:00 Labs: Laboratory Results - last 24 hr 05/16/22 05/16/22 05/17/22 12:07 14:28 07:00 WBC 9.9 RBC 3.94 L Hgb 12.5 L Hct 36.8 L MCV 93.3 MCH 31.7 MCHC 33.9 RDW 12.8 Plt Count 136 L Neut % (Auto) 77.3 H Lymph % (Auto) 10.7 L [place] % (Auto) 10.6 Eos % (Auto) 1.3 L Baso % (Auto) 0.1 Neut # (Auto) 7700 H Lymph # (Auto) 1100 [place] # (Auto) 1100 H Eos # (Auto) 100 Baso # (Auto) 0 Sodium Potassium Chloride Carbon Dioxide BUN Creatinine Estimated GFR BUN/Creatinine Ratio Glucose Calcium Troponin I 0.126 H* SARS-CoV-2 (PCR) Negative 05/17/22 07:00 WBC RBC Hgb Hct MCV MCH MCHC RDW Plt Count Neut % (Auto) Lymph % (Auto) [place] % (Auto) Eos % (Auto) Baso % (Auto) Neut # (Auto) Lymph # (Auto) [place] # (Auto) Eos # (Auto) Baso # (Auto) Sodium 139 Potassium 3.9 Chloride 106 Carbon Dioxide 24 BUN 42 H Creatinine 1.58 H Estimated GFR 43 L BUN/Creatinine Ratio 26.6 H Glucose 91 Calcium 8.8 Troponin I SARS-CoV-2 (PCR) [facility] Medical History Hyperlipidemia Hypertension Renal insufficiency Social History household members: spouse Smoking Status: Former smoker alcohol intake: current Discharge Plan Discharge Plan Patient Disposition: Home Provider Discharge Comment: You were admitted to the hospital for further evaluation of your heart. You most likely had a previous heart attack based on your heart ultrasound and presentation. 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 He also recommended a stress test, but stated this could be done as an outpatient. Please follow up with your primary care provider for further management as an outpatient, with stress test recommended as above. Discharge orders & Medications Prescriptions: New aspirin 81 mg Tablet,Delayed Release (Dr/Ec) 81 mg PO DAILY 30 Days Qty: 30 0RF atorvastatin 80 mg tablet 80 mg PO BEDTIME 30 Days Qty: 30 0RF metoprolol succinate 25 mg tablet extended release 24 hr 12.5 mg PO DAILY 60 Days Qty: 30 0RF Continued allopurinol 100 mg tablet 100 mg PO DAILY Discontinued simvastatin 40 mg tablet 40 mg PO DAILY Label Comments: take 1 tablet by mouth every evening losartan-hydrochlorothiazide 50-12.5 mg tablet 1 tab PO DAILY Label Comments: take 1 tablet by mouth once daily Follow up/Referrals: Humza Herr MD [Primary Care Provider] - 1 Week (Outpatient stress testing recommended by cardiology) Diet/Activity/Treatments Diet: Diet as Tolerated Activity: As tolerated Visit Report/Discharge Packet Instructions: DI for Heart Attack, Cardiac Stress Test, DI for High Cholesterol-Adult Discharge Data Primary Care Provider: Humza Herr Attending Provider: Joe Penny Quality VTE Deep Vein Thrombosis/Pulmonary Embolism Present on Admission: No
--- NOTE | 2022-05-17 13:55 | PC.NURSE ---
Pt dressed and ready for d/c home. Pt IV and tele removed. Pt to be transported via POV with . Discussed d/c instructions and answered questions. Provided pt education about heart attack, high cholesterol, cardiac stress test and stroke s/s. Pt taken out via wheel chair by KIRIT.
== END 2022-05-17 13:59 | disposition home or self-care (01) ==
LOC: ED 09:33 → AC 14:26
PROVIDERS: Admitting Provider Internal Medicine; Emergency Provider Emergency Medicine; Family Provider Internal Medicine; PCP Internal Medicine; Visit Provider Internal Medicine
DX: R07.9 Chest pain, unspecified (principal); E78.5 Hyperlipidemia, unspecified; I12.9 Hypertensive chronic kidney disease with stage 1 through stage 4 chronic kidney disease, or unspecified chronic kidney disease; N18.2 Chronic kidney disease, stage 2 (mild); D63.1 Anemia in chronic kidney disease; M10.9 Gout, unspecified; R77.8 Other specified abnormalities of plasma proteins; Z20.822 Contact with and (suspected) exposure to COVID-19
CPT/HCPCS: 36415; 80048; 80053; 82550; 83690; 83735; 84484; 85025; 85379; 87635; 93005; 93306; 99284; 99291; C9803; G0378

== ENCOUNTER → 2022-06-16 08:22 | Outpatient (CLI) | payer MEDICARE, SELFPAY ==
[2022-05-16 15:20] VITALS: BMI 29.1
[2022-06-16 10:18] LABS: Hematocrit 36.3 % (41-53); Hemoglobin 12.2 g/dL (13.5-17.5)
[2022-06-16 10:45] LABS: BUN Creatinine Ratio 19.2 (6-22); Blood Urea Nitrogen 25 mg/dL (9-20); Calcium 8.8 mg/dL (8.4-10.2); Carbon Dioxide 22 mmol/L (22-32); Chloride 106 mmol/L (98-107); Estimated Glomerular Filt Rate 54 mL/min (>60); Glucose 83 mg/dL (80-110); HEMOLYSIS < 15 (0-50); Phosphorous 3.2 mg/dL (2.3-3.7); Potassium 4.4 mmol/L (3.4-5.1); Sodium 141 mmol/L (137-145)
[2022-06-16 10:52] LABS: Total Iron Binding Capacity 218 ug/dL (261-462)
[2022-06-16 11:17] LABS: Ferritin 186 ng/mL (18-464)
[2022-06-16 11:25] LABS: Appearance Urine UA CLEAR; Bilirubin Urine UA NEGATIVE (NEGATIVE); Color Urine UA YELLOW; Glucose Urine UA NEGATIVE (Negative); Ketones Urine UA NEGATIVE (NEGATIVE); Leukocyte Esterase Urine UA NEGATIVE (NEGATIVE); Nitrite Urine UA NEGATIVE (Negative); Occult Blood Urine UA NEGATIVE (Negative); Protein Urine UA NEGATIVE (Negative); Specific Gravity Urine UA 1.015 (1.000-1.035); Urobilinogen Urine UA 0.2 E.U./dL (0.2)
[2022-06-16 11:37] LABS: Bacteria Urine Few (2-10); Culture Indicated Urine Cult Not Indicated; RBC Urine None Seen (0-5/HPF); WBC Urine 0-1/HPF (0-5/HPF)
[2022-06-16 12:07] LABS: Creatinine Urine Random 85.5 mg/dL; Protein (Total) Urine Random 7 mg/dL (0-12); Protein Creatinine Ratio Urine 0.08 GRAM/24H
[2022-06-17 06:33] LABS: Parathyroid Hormone Int 134 pg/mL (15-65)
== END ==
PROVIDERS: Family Provider Internal Medicine; PCP Internal Medicine; Referring Provider Student in an Organized Health Care Education/Training Program; Visit Provider Student in an Organized Health Care Education/Training Program
DX: D50.0 Iron deficiency anemia secondary to blood loss (chronic) (principal); N05.9 Unspecified nephritic syndrome with unspecified morphologic changes; D64.9 Anemia, unspecified; E83.30 Disorder of phosphorus metabolism, unspecified; N25.81 Secondary hyperparathyroidism of renal origin; N30.00 Acute cystitis without hematuria; R80.9 Proteinuria, unspecified
CPT/HCPCS: 36415; 80048; 81001; 82570; 82728; 83550; 83970; 84100; 84156; 85014; 85018

== ENCOUNTER → 2022-09-15 10:01 | Outpatient (CLI) | payer MEDICARE, SELFPAY ==
[2022-05-16 15:20] VITALS: BMI 29.1
--- NOTE | 2022-09-15 10:02 | DI.CT.S_ITS ---
PROCEDURE: CT HEAD/BRAIN WO CON INDICATIONS: headache TECHNIQUE: Noncontrast 4.5 mm thick angled axial sections acquired from the foramen magnum to the vertex, with coronal and sagittal reformats. For radiation dose reduction, the following was used: automated exposure control, adjustment of mA and/or kV according to patient size. COMPARISON: None. FINDINGS: Image quality: Excellent. CSF spaces: Basal cisterns are patent. No extra-axial fluid collections. The ventricles are symmetric in size and shape. Brain: No intracranial bleeds or masses. There is cerebral volume loss for age, with resultant ventricular and sulcal prominence. There are periventricular and deep white matter chronic small vessel ischemic changes. There is intracranial internal carotid artery atherosclerosis. Skull and face: Calvarium and visualized facial bones appear intact, without suspicious lesions. Sinuses: Visualized sinuses and mastoids are clear. Bilateral sandy bullosa are incidentally noted. IMPRESSION: Unremarkable noncontrast head CT for age, without a cause of headache identified. To the limits of noncontrast head CT, no findings of masses or mass effect can be seen. No hydrocephalus. Dictated by: Isaac Bassett M.D. on 09/15/2022 at 9:33 Approved by: Isaac Bassett M.D. on 09/15/2022 at 9:34
== END ==
PROVIDERS: Family Provider Internal Medicine; PCP Internal Medicine; Referring Provider Internal Medicine; Visit Provider Internal Medicine
DX: R51.9 Headache, unspecified (principal)
CPT/HCPCS: 70450

== ENCOUNTER → 2022-12-01 10:14 | Outpatient (CLI) | payer MEDICARE, SELFPAY ==
[2022-05-16 15:20] VITALS: BMI 29.1
[2022-12-01 11:25] LABS: Blood Urea Nitrogen 29 mg/dL (9-20); Calcium 9.1 mg/dL (8.4-10.2); Carbon Dioxide 28 mmol/L (22-32); Chloride 106 mmol/L (98-107); Estimated Glomerular Filt Rate 50 mL/min (>60); Glucose 86 mg/dL (80-110); HEMOLYSIS < 15 (0-50); Potassium 4.9 mmol/L (3.4-5.1); Sodium 141 mmol/L (137-145)
[2022-12-01 11:29] LABS: Hematocrit 38.4 % (41-53); Hemoglobin 12.9 g/dL (13.5-17.5)
[2022-12-01 15:19] LABS: Creatinine Urine Random 143.3 mg/dL; Protein (Total) Urine Random 6 mg/dL (0-12); Protein Creatinine Ratio Urine 0.04 GRAM/24H
[2022-12-03 09:48] LABS: Parathyroid Hormone Int 130 pg/mL (15-65)
== END ==
PROVIDERS: Family Provider Internal Medicine; PCP Internal Medicine; Referring Provider Student in an Organized Health Care Education/Training Program; Visit Provider Student in an Organized Health Care Education/Training Program
DX: N05.9 Unspecified nephritic syndrome with unspecified morphologic changes (principal); D64.9 Anemia, unspecified; N25.81 Secondary hyperparathyroidism of renal origin; R80.9 Proteinuria, unspecified
CPT/HCPCS: 36415; 80048; 82570; 83970; 84156; 85014; 85018

== ENCOUNTER → 2023-02-03 11:03 | Outpatient (CLI) | payer MEDICARE, SELFPAY ==
[2022-05-16 15:20] VITALS: BMI 29.1
[2023-02-03 13:00] LABS: Add Manual Diff / Slide Review NO; Basophils Absolute Auto 0 /uL (0-100); Basophils Percent Auto 0.4 % (0-2); Eosinophils Absolute Auto 200 /uL (0-450); Eosinophils Percent Auto 2.6 % (2-4); Hematocrit 38.7 % (41-53); Hemoglobin 13.1 g/dL (13.5-17.5); Lymphocytes Absolute Auto 1200 /uL (1100-4500); Lymphocytes Percent Auto 16.3 % (25-40); Mean Corpuscular HGB Conc 33.8 % (30-36); Mean Corpuscular Hemoglobin 31.2 PG (26-34); Mean Corpuscular Volume 92.4 fL (80-100); Monocytes Absolute Auto 500 /uL (0-900); Monocytes Percent Auto 7.2 % (3-14); Neutrophils Absolute Auto 5600 /uL (1500-7000); Neutrophils Percent Auto 73.5 % (50-75); Platelet Count 132 X10^3/uL (150-400); Red Blood Cell Count 4.19 X10^6/uL (4.5-5.9); Red Cell Distribution Width 13.8 % (11.6-14.8); White Blood Cell Count 7.6 X10^3/uL (4.5-11.0)
[2023-02-03 13:19] LABS: Alanine Aminotransferase 22 IU/L (<50); Albumin 4.1 g/dL (3.5-5.0); Albumin Globulin Ratio 1.4 (1.0-2.8); Alkaline Phosphatase 104 U/L (38-126); Aspartate Aminotransferase 23 IU/L (17-59); BUN Creatinine Ratio 16.4 (6-22); Bilirubin Total 1.1 mg/dL (0.2-1.3); Blood Urea Nitrogen 22 mg/dL (9-20); Calcium 8.9 mg/dL (8.4-10.2); Carbon Dioxide 28 mmol/L (22-32); Chloride 105 mmol/L (98-107); Cholesterol 101 mg/dL (140-199); Estimated Glomerular Filt Rate 52 mL/min (>60); Globulin 2.9 g/dL (1.7-4.1); Glucose 83 mg/dL (80-110); HDL Cholesterol 39 mg/dL (40-60); HEMOLYSIS < 15 (0-50); LDL Cholesterol Calculated 48 mg/dL (<100); Potassium 4.3 mmol/L (3.4-5.1); Sodium 140 mmol/L (137-145); Triglycerides 68 mg/dL (35-150)
== END ==
PROVIDERS: Family Provider Internal Medicine; PCP Internal Medicine; Referring Provider Internal Medicine Cardiovascular Disease; Visit Provider Internal Medicine Cardiovascular Disease
DX: I25.10 Atherosclerotic heart disease of native coronary artery without angina pectoris (principal)
CPT/HCPCS: 36415; 80053; 80061; 85025

== ENCOUNTER → 2023-03-15 10:35 | Outpatient (CLI) | payer MEDICARE, SELFPAY ==
[2022-05-16 15:20] VITALS: BMI 29.1
[2023-03-15 11:50] LABS: Hematocrit 37.7 % (41-53); Hemoglobin 12.6 g/dL (13.5-17.5); Mean Corpuscular HGB Conc 33.4 % (30-36); Mean Corpuscular Hemoglobin 31.2 PG (26-34); Mean Corpuscular Volume 93.4 fL (80-100); Platelet Count 119 X10^3/uL (150-400); Red Blood Cell Count 4.04 X10^6/uL (4.5-5.9); Red Cell Distribution Width 14.3 % (11.6-14.8); White Blood Cell Count 8.9 X10^3/uL (4.5-11.0)
== END ==
PROVIDERS: Family Provider Internal Medicine; PCP Internal Medicine; Referring Provider Physician Assistant; Visit Provider Physician Assistant
DX: I48.21 Permanent atrial fibrillation (principal); Z79.01 Long term (current) use of anticoagulants
CPT/HCPCS: 36415; 85027

== ENCOUNTER → 2023-06-02 11:40 | Outpatient (CLI) | payer MEDICARE, SELFPAY ==
[2022-05-16 15:20] VITALS: BMI 29.1
[2023-06-02 13:01] LABS: Hematocrit 39.5 % (41-53); Hemoglobin 13.2 g/dL (13.5-17.5)
[2023-06-02 13:44] LABS: BUN Creatinine Ratio 24.8 (6-22); Blood Urea Nitrogen 35 mg/dL (9-20); Calcium 9.6 mg/dL (8.4-10.2); Carbon Dioxide 24 mmol/L (22-32); Chloride 108 mmol/L (98-107); Estimated Glomerular Filt Rate 49 mL/min (>60); Glucose 74 mg/dL (80-110); HEMOLYSIS < 15 (0-50); Potassium 4.2 mmol/L (3.4-5.1); Sodium 139 mmol/L (137-145)
[2023-06-02 16:54] LABS: Creatinine Urine Random 116.3 mg/dL; Protein (Total) Urine Random 8 mg/dL (0-12); Protein Creatinine Ratio Urine 0.06 GRAM/24H
[2023-06-04 07:59] LABS: Parathyroid Hormone Int 90 pg/mL (15-65)
== END ==
PROVIDERS: Family Provider Internal Medicine; PCP Internal Medicine; Referring Provider Student in an Organized Health Care Education/Training Program; Visit Provider Student in an Organized Health Care Education/Training Program
DX: N05.9 Unspecified nephritic syndrome with unspecified morphologic changes (principal); D64.9 Anemia, unspecified; N25.81 Secondary hyperparathyroidism of renal origin; R80.9 Proteinuria, unspecified
CPT/HCPCS: 36415; 80048; 82570; 83970; 84156; 85014; 85018

== ENCOUNTER → 2023-09-28 14:42 | Outpatient (CLI) | payer MEDICARE, SELFPAY ==
[2022-05-16 15:20] VITALS: BMI 29.1
[2023-09-28 16:38] LABS: BUN Creatinine Ratio 20.9 (6-22); Blood Urea Nitrogen 28 mg/dL (9-20); Carbon Dioxide 25 mmol/L (22-32); Chloride 108 mmol/L (98-107); Estimated Glomerular Filt Rate 52 mL/min (>60); Glucose 92 mg/dL (80-110); HEMOLYSIS < 15 (0-50); Potassium 5.1 mmol/L (3.4-5.1); Sodium 143 mmol/L (137-145)
[2023-09-29 08:35] LABS: Parathyroid Hormone Int 144 pg/mL (15-65)
== END ==
PROVIDERS: Family Provider Internal Medicine; PCP Internal Medicine; Referring Provider Student in an Organized Health Care Education/Training Program; Visit Provider Student in an Organized Health Care Education/Training Program
DX: N05.9 Unspecified nephritic syndrome with unspecified morphologic changes (principal); N25.81 Secondary hyperparathyroidism of renal origin
CPT/HCPCS: 36415; 80048; 83970

== ENCOUNTER → 2023-10-19 10:54 | Outpatient (CLI) | payer MEDICARE, SELFPAY ==
[2022-05-16 15:20] VITALS: BMI 29.1
[2023-10-19 12:22] LABS: Hematocrit 42.1 % (41-53); Mean Corpuscular HGB Conc 33.2 % (30-36); Mean Corpuscular Hemoglobin 30.9 PG (26-34); Mean Corpuscular Volume 93.3 fL (80-100); Platelet Count 116 X10^3/uL (150-400); Red Blood Cell Count 4.52 X10^6/uL (4.5-5.9); Red Cell Distribution Width 13.7 % (11.6-14.8); White Blood Cell Count 7.8 X10^3/uL (4.5-11.0)
[2023-10-19 13:02] LABS: Alanine Aminotransferase 25 IU/L (<50); Albumin 4.4 g/dL (3.5-5.0); Albumin Globulin Ratio 1.4 (1.0-2.8); Alkaline Phosphatase 99 U/L (38-126); Aspartate Aminotransferase 25 IU/L (17-59); BUN Creatinine Ratio 22.8 (6-22); Bilirubin Total 1.3 mg/dL (0.2-1.3); Blood Urea Nitrogen 34 mg/dL (9-20); Calcium 9.5 mg/dL (8.4-10.2); Carbon Dioxide 25 mmol/L (22-32); Chloride 110 mmol/L (98-107); Estimated Glomerular Filt Rate 45 mL/min (>60); Globulin 3.1 g/dL (1.7-4.1); Glucose 72 mg/dL (80-110); HEMOLYSIS 18 (0-50); Potassium 4.4 mmol/L (3.4-5.1); Sodium 143 mmol/L (137-145); Total Protein 7.5 g/dL (6.3-8.2)
== END ==
PROVIDERS: Family Provider Internal Medicine; PCP Internal Medicine; Referring Provider Physician Assistant; Visit Provider Physician Assistant
DX: I48.21 Permanent atrial fibrillation (principal); Z79.01 Long term (current) use of anticoagulants
CPT/HCPCS: 36415; 80053; 85027

== ENCOUNTER 2023-12-27 11:27 | Emergency (ER) | payer MEDICARE, SELFPAY ==
[2022-05-16 15:20] VITALS: BMI 29.1
[2023-12-27] VITALS (12 sets, daily range): BP systolic 121–177; BP diastolic 58–75; PULSE 83–98; RESP 12–29; TEMP 36.9; O2SAT 92–100; BMI 27.7
--- NOTE | 2023-12-27 12:05 | DI.RAD.S_ITS ---
PROCEDURE: XR CHEST 1V INDICATIONS: chest pain TECHNIQUE: One view of the chest was acquired. COMPARISON: [facility], , XR CHEST 2V, 05/15/2022, 10:28. [facility], , CHEST 2 VIEW, 04/09/2015, 10:18. FINDINGS: Surgical changes and devices: None. Lungs and pleura: Low lung volumes. No dense consolidation or pleural effusion. Mediastinum: Heart size is borderline enlarged. There is eventration again seen of the left hemidiaphragm. Cardiomediastinal contours are unchanged Bones and chest wall: Degenerative changes peer IMPRESSION: Low lung volumes without acute radiographic abnormality on this single-view limited study. Left hemidiaphragm eventration again seen. Borderline cardiomegaly. Dictated by: Turner Doyle M.D. on 12/27/2023 at 13:33 Approved by: Turner Doyle M.D. on 12/27/2023 at 13:34
[2023-12-27 13:09] LABS: Add Manual Diff / Slide Review NO; Basophils Absolute Auto 0 /uL (0-100); Basophils Percent Auto 0.1 % (0-2); Eosinophils Absolute Auto 100 /uL (0-450); Eosinophils Percent Auto 0.7 % (2-4); Hematocrit 41.6 % (41-53); Hemoglobin 13.6 g/dL (13.5-17.5); Lymphocytes Absolute Auto 300 /uL (1100-4500); Lymphocytes Percent Auto 2.3 % (25-40); Mean Corpuscular HGB Conc 32.6 % (30-36); Mean Corpuscular Hemoglobin 30.8 PG (26-34); Mean Corpuscular Volume 94.4 fL (80-100); Monocytes Absolute Auto 300 /uL (0-900); Monocytes Percent Auto 3.1 % (3-14); Neutrophils Absolute Auto 10400 /uL (1500-7000); Neutrophils Percent Auto 93.8 % (50-75); Platelet Count 114 X10^3/uL (150-400); Red Blood Cell Count 4.41 X10^6/uL (4.5-5.9); Red Cell Distribution Width 14.1 % (11.6-14.8); White Blood Cell Count 11.1 X10^3/uL (4.5-11.0)
[2023-12-27 13:16] LABS: INR 1.6 (0.9-1.3)
[2023-12-27 13:18] LABS: PTT Partial Thromboplastin Tim 41 SECONDS (25.1-36.5)
[2023-12-27 13:23] LABS: Alanine Aminotransferase 26 IU/L (<50); Albumin 4.5 g/dL (3.5-5.0); Albumin Globulin Ratio 1.8 (1.0-2.8); Alkaline Phosphatase 97 U/L (38-126); Aspartate Aminotransferase 27 IU/L (17-59); BUN Creatinine Ratio 21.6 (6-22); Bilirubin Total 1.2 mg/dL (0.2-1.3); Blood Urea Nitrogen 30 mg/dL (9-20); Calcium 8.8 mg/dL (8.4-10.2); Carbon Dioxide 27 mmol/L (22-32); Chloride 108 mmol/L (98-107); Creatine Kinase 84 U/L (55-170); Estimated Glomerular Filt Rate 49 mL/min (>60); Globulin 2.5 g/dL (1.7-4.1); Glucose 93 mg/dL (80-110); HEMOLYSIS < 15 (0-50); Lipase 100 U/L (23-300); Magnesium 1.8 mg/dL (1.6-2.3); Sodium 140 mmol/L (137-145)
[2023-12-27 13:25] LABS: Potassium 5.4 mmol/L (3.4-5.1)
--- NOTE | 2023-12-27 13:25 | ED_ITS ---
HPI - General Adult General Chief complaint: Weakness Stated complaint: Weak Time Seen by Provider: 12/27/23 13:10 Source: patient Mode of arrival: Ambulatory History of Present Illness HPI narrative: 86-year-old gentleman with a history of hypertension, hyperlipidemia, chronic kidney disease a ?silent heart attack? in May of 2022 who comes in today because he woke up feeling weak. This is decidedly unusual for him. This was the only presentation he had with a prior hard event so he comes in for further evaluation. He denies any recent fever, cough, chills. No dyspnea, orthopnea, palpitations although he does note that he is in chronic atrial fibrillation and is anticoagulated with apixaban. He has no other significant complaints this time Related Data Home Medications Medication Instructions Recorded Confirmed polyethylene glycol 3350 17 17 g PO 3XW 08/19/22 11/23/23 gram/dose oral powder (Miralax) sennosides 8.6 mg tablet (Senokot) 8.6 mg PO DAILY 08/19/22 11/23/23 vitamins A,C,A-wafk-potovk 4,296 1 cap PO BID 08/19/22 11/23/23 mcg-226 mg-90 mg capsule (PreserVision AREDS) apixaban 5 mg tablet (Eliquis) 5 mg PO BID 05/20/23 11/23/23 cholecalciferol (vitamin D3) 125 125 mcg PO DAILY 11/23/23 11/23/23 mcg (5,000 unit) capsule potassium citrate 15 mEq (1,620 15 meq PO BID 11/23/23 11/23/23 mg) tablet,extended release Previous Rx's Medication Instructions Recorded allopurinol 100 mg tablet 100 mg PO DAILY #90 tabs 04/29/23 metoprolol succinate 25 mg 12.5 mg (1/2 x 25 mg) PO DAILY #45 06/28/23 tablet,extended release 24 hr tabs atorvastatin 80 mg tablet 80 mg PO BEDTIME #90 tabs 07/16/23 Allergies Allergy/AdvReac Type Severity Reaction Status Date / Time Penicillins AdvReac Intermediate hives Verified 12/27/23 12:01 Review of Systems Review of Systems Narrative: Pertinent positive and negative findings as per HPI Patient History Medical History Chronic atrial fibrillation Venous (peripheral) insufficiency Chronic low back pain Dupuytren's contracture of left hand Stage 3b chronic kidney disease (CKD) Mixed hyperlipidemia Essential hypertension Chronic anticoagulation Coronary artery disease Eczema Gout Chicken pox Tinnitus Hearing loss Cataracts, bilateral Surgical History Skin cancer (~1994) Family History Mother Cancer Social History details: (Anna Marie - dementia), 2 children, 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 Able to give a complete and coherent history. Well-nourished well-developed HEENT: Moist mucous membranes, normal sclera with reactive pupils, Neck: No JVD, supple Respiratory: Lungs are clear to auscultation, no wheezing no rales no rhonchi. Full and symmetrical air movement Cardiac: Regular rate and rhythm no murmurs no bruits Abdomen: Soft, nontender, good bowel tones, no flank pain Skin: Warm and dry, no rashes Neurologic: Grossly neurologically intact with no obvious asymmetries or abnormalities Extremities: No trauma, well perfused, bilateral lower extremity edema Psych: Cooperative, appropriate insight and affect Course Orders Ordered: ED Orders 12/27/23 12:05 XR chest 1V Stat EKG-12 Lead Stat 12/27/23 12:55 Complete Blood Count AUTO DIFF Stat Comprehensive Metabolic Panel Stat Lipase Stat Magnesium Stat PTT Partial Thromboplastin Nima Stat Prothrombin Time INR Stat Troponin & CK Cardiac Panel Stat 12/27/23 14:20 BMP [Basic Metabolic Panel] Stat Trop I [Troponin I] Stat Discontinued Medications Aspirin (Aspirin 81 Mg Chew Tab) 324 mg PO NOW ONE Stop: 12/27/23 12:06 Last Admin: 12/27/23 12:41 Dose: Not Given Documented By: GONZALES Sodium Chloride (Normal Saline 0.9%) 500 mls @ 1,000 mls/hr IV BOLUS ONE Stop: 12/27/23 14:03 Last Infusion: 12/27/23 14:18 Dose: Infused Documented By: Admin: 12/27/23 13:42 Dose: 1,000 mls/hr Documented By: HOMERO Vital Signs Vital signs: Vital Signs - 8 hr 12/27/23 12:01 12/27/23 12:09 12/27/23 12:19 Temperature 98.4 F Pulse Rate 83 93 H Respiratory Rate 18 29 H Blood Pressure 148/75 H 148/75 H Pulse Oximetry 99 Oxygen Delivery Method Room Air 12/27/23 12:20 12/27/23 12:20 12/27/23 12:30 Temperature Pulse Rate 90 Respiratory Rate 28 H Blood Pressure 177/75 H 128/66 Pulse Oximetry 100 Oxygen Delivery Method Room Air 12/27/23 12:30 12/27/23 13:00 12/27/23 13:00 Temperature Pulse Rate 97 H 97 H Respiratory Rate 23 20 Blood Pressure 121/66 Pulse Oximetry 99 99 Oxygen Delivery Method Room Air 12/27/23 13:30 12/27/23 13:30 12/27/23 14:00 Temperature Pulse Rate 98 H Respiratory Rate 26 H Blood Pressure 133/67 123/68 Pulse Oximetry 98 Oxygen Delivery Method 12/27/23 14:00 12/27/23 14:32 12/27/23 14:33 Temperature Pulse Rate 85 90 Respiratory Rate 24 22 Blood Pressure 150/70 H Pulse Oximetry 99 92 Oxygen Delivery Method Room Air 12/27/23 14:33 12/27/23 15:00 12/27/23 15:00 Temperature Pulse Rate 90 86 Respiratory Rate 22 25 H Blood Pressure 131/61 Pulse Oximetry 94 98 Oxygen Delivery Method Room Air Medical Decision Making Lab Data 12/27/23 12:55 12/27/23 14:20 Labs: Lab Results 12/27/23 12/27/23 Range/Units 12:55 14:20 WBC 11.1 H (4.5-11.0) X10^3/uL RBC 4.41 L (4.5-5.9) X10^6/uL Hgb 13.6 (13.5-17.5) g/dL Hct 41.6 (41-53) % MCV 94.4 (80-100) fL MCH 30.8 (26-34) PG MCHC 32.6 (30-36) % RDW 14.1 (11.6-14.8) % Plt Count 114 L (150-400) X10^3/uL Neut % (Auto) 93.8 H (50-75) % Lymph % (Auto) 2.3 L (25-40) % [place] % (Auto) 3.1 (3-14) % Eos % (Auto) 0.7 L (2-4) % Baso % (Auto) 0.1 (0-2) % Neut # (Auto) 08983 H (2141-4351) /uL Lymph # (Auto) 300 L (9609-3750) /uL [place] # (Auto) 300 (0-900) /uL Eos # (Auto) 100 (0-450) /uL Baso # (Auto) 0 (0-100) /uL PT 18.0 H (9.4-12.5) SECONDS INR 1.6 H (0.9-1.3) APTT 41 H (25.1-36.5) SECONDS Sodium 140 139 (137-145) mmol/L Potassium 5.4 H 4.8 (3.4-5.1) mmol/L Chloride 108 H 109 H (98-107) mmol/L Carbon Dioxide 27 26 (22-32) mmol/L BUN 30 H 30 H (9-20) mg/dL Creatinine 1.39 H 1.39 H (0.66-1.25) mg/dL Estimated GFR 49 L 49 L (>60) mL/min BUN/Creatinine Ratio 21.6 21.6 (6-22) Glucose 93 90 (80-110) mg/dL Calcium 8.8 8.4 (8.4-10.2) mg/dL Magnesium 1.8 (1.6-2.3) mg/dL Total Bilirubin 1.2 (0.2-1.3) mg/dL AST 27 (17-59) IU/L ALT 26 (<50) IU/L Alkaline Phosphatase 97 (38-126) U/L Total Creatine Kinase 84 (55-170) U/L Troponin I 0.012 0.012 (0.01-0.034) ng/mL Total Protein 7.0 (6.3-8.2) g/dL Albumin 4.5 (3.5-5.0) g/dL Globulin 2.5 (1.7-4.1) g/dL Albumin/Globulin Ratio 1.8 (1.0-2.8) Lipase 100 (23-300) U/L Urine Dip Bedside Urine Glucose Negative Bedside Urine Bilirubin - Negative Bedside Urine Ketone - Negative Urine Specific [place] 1.025 Bedside Urine Occult Blood - Negative Bedside Urine pH 6.0 Bedside Urine Protein - Negative Bedside Urine Urobilinogen - Negative Bedside Urine Nitrite - Negative Bedside Urine Leukocytes - Negative Esterase Point of care testing: Urine Dip Bedside Urine Glucose Negative Bedside Urine Bilirubin - Negative Bedside Urine Ketone - Negative Urine Specific [place] 1.025 Bedside Urine Occult Blood - Negative Bedside Urine pH 6.0 Bedside Urine Protein - Negative Bedside Urine Urobilinogen - Negative Bedside Urine Nitrite - Negative Bedside Urine Leukocytes - Negative Esterase MDM Narrative Medical decision making narrative: CC: Awoke with weakness all over this morning Complicating co-morbidities: Last time this happened he had a ?silent heart attack?, hypertension, hyperlipidemia, chronic atrial fibrillation Data collected from: patient, son Medical records reviewed: Discharge summary from the hospital May 17, 2022 Differential considered: Acute coronary syndrome, anemia, infection, sepsis, viral syndrome, poor night sleep Exam documented above, pertinent findings include: Exam is entirely benign. Patient states he is beginning to feel better than when he woke up this morning Lab Test results independently reviewed as above. Pertinent findings: CBC shows slight leukocytosis at 11.1 with 93.8 neutrophils. No signs of anemia Chemistries show potassium elevated at 5.4, chronic renal disease creatinine stable at 1.39 Initial and repeat troponin are unremarkable Potassium on repeat is down to 4.8 Independently reviewed EKG: Atrial fibrillation at a rate of 93. No acute ischemic changes Imaging studies independently reviewed: Chest x-ray is unremarkable for cardiopulmonary abnormalities. Quite a bit of stomach air appreciated Treatments: 500 cc bolus of saline Discussion: 88-year-old gentleman with weakness and not feeling himself today. This is what happened with a prior cardiac event so he is being proactive and comes in for further evaluation. Fortunately, I am finding no evidence of infection, acute coronary syndrome, stroke. Potassium was slightly elevated at 5.4 on initial draw and after 500 cc of fluid is down to 4.8. Patient is feeling significantly better. Reviewed EKGs and x-rays. Questions are answered he is safe for discharge Discharge Plan Departure Patient Disposition: Home Clinical Impression: Weakness Activity Restrictions/Additional Instructions: Thank you for coming in today Fortunately, I do not have a significant explanation for you weakness. You are not having a heart attack or heart attack like syndrome. There is no evidence of kidney failure, liver failure, sepsis or other infection. Your chest x-ray is unremarkable and your EKGs are reassuring I believe it is safe for you to go home and continue with your usual routines. If you find that you are getting worse or develop any new symptoms, please feel free to return to the emergency department for further evaluation. Prescriptions: No Action allopurinol 100 mg tablet 100 mg PO DAILY Qty: 90 3RF metoprolol succinate 25 mg tablet extended release 24 hr 12.5 mg PO DAILY Qty: 45 3RF atorvastatin 80 mg tablet 80 mg PO BEDTIME Qty: 90 3RF Patient Comments: take 1 tablet by mouth at bedtime PreserVision AREDS [id number],320-226-200 [id number]-[id number] capsule 1 cap PO BID sennosides [Senokot] 8.6 mg tablet 8.6 mg PO DAILY polyethylene glycol 3350 [Miralax] 17 gram/dose powder 17 g PO 3XW potassium citrate 15 mEq tablet extended release 15 meq PO BID cholecalciferol (vitamin D3) 125 mcg (5,000 unit) capsule 125 mcg PO DAILY Eliquis 5 mg tablet 5 mg PO BID Patient Comments: [NO ORIGINAL SIG] Referrals: Joe Gifford MD [Primary Care Provider] - Stand Alone Forms: Patient Portal/API
[2023-12-27 13:34] LABS: Troponin I 0.012 ng/mL (0.01-0.034)
[2023-12-27] MEDS: SODIUM CHLORIDE 0.9% 500 ML 1000 ML IV (13:42)
[2023-12-27 14:42] LABS: BUN Creatinine Ratio 21.6 (6-22); Blood Urea Nitrogen 30 mg/dL (9-20); Calcium 8.4 mg/dL (8.4-10.2); Carbon Dioxide 26 mmol/L (22-32); Chloride 109 mmol/L (98-107); Estimated Glomerular Filt Rate 49 mL/min (>60); Glucose 90 mg/dL (80-110); HEMOLYSIS 16 (0-50); Potassium 4.8 mmol/L (3.4-5.1); Sodium 139 mmol/L (137-145)
[2023-12-27 14:53] LABS: Troponin I 0.012 ng/mL (0.01-0.034)
== END 2023-12-27 15:51 | disposition home or self-care (01) ==
PROVIDERS: Emergency Provider Emergency Medicine; Family Provider Internal Medicine; PCP Internal Medicine
DX: R53.1 Weakness (principal); I48.91 Unspecified atrial fibrillation; Z79.01 Long term (current) use of anticoagulants
CPT/HCPCS: 36415; 71045; 80048; 80053; 81003; 82550; 83690; 83735; 84484; 85025; 85610; 85730; 93005; 99284

== ENCOUNTER → 2024-06-16 11:03 | Outpatient (CLI) | payer MEDICARE, SELFPAY ==
[2022-05-16 15:20] VITALS: BMI 29.1
[2024-06-16 12:23] LABS: Hematocrit 41.7 % (41-53); Hemoglobin 13.9 g/dL (13.5-17.5)
[2024-06-16 12:52] LABS: BUN Creatinine Ratio 16.6 (6-22); Blood Urea Nitrogen 25 mg/dL (9-20); Calcium 9.2 mg/dL (8.4-10.2); Carbon Dioxide 27 mmol/L (22-32); Chloride 106 mmol/L (98-107); Estimated Glomerular Filt Rate 44 mL/min (>60); Glucose 75 mg/dL (80-110); HEMOLYSIS < 15 (0-50); Potassium 5.3 mmol/L (3.4-5.1); Sodium 139 mmol/L (137-145)
[2024-06-16 15:31] LABS: Creatinine Urine Random 47.41 mg/dL; Protein (Total) Urine Random 12 mg/dL (0-12); Protein Creatinine Ratio Urine 0.25 GRAM/24H
[2024-06-17 07:09] LABS: Parathyroid Hormone Int 133 pg/mL (15-65)
== END ==
PROVIDERS: Family Provider Internal Medicine; PCP Internal Medicine; Referring Provider Student in an Organized Health Care Education/Training Program; Visit Provider Student in an Organized Health Care Education/Training Program
DX: N05.9 Unspecified nephritic syndrome with unspecified morphologic changes (principal); D70.9 Neutropenia, unspecified; D63.1 Anemia in chronic kidney disease; N25.81 Secondary hyperparathyroidism of renal origin; R00.9 Unspecified abnormalities of heart beat
CPT/HCPCS: 36415; 80048; 82570; 83970; 84156; 85014; 85018

== ENCOUNTER → 2024-06-23 07:05 | Outpatient (CLI) | payer MEDICARE, SELFPAY ==
[2022-05-16 15:20] VITALS: BMI 29.1
[2024-06-23 08:01] LABS: HEMOLYSIS < 15 (0-50); Potassium 4.5 mmol/L (3.4-5.1)
== END ==
LOC: LAB 07:06
PROVIDERS: Family Provider Internal Medicine; PCP Internal Medicine; Referring Provider Student in an Organized Health Care Education/Training Program; Visit Provider Student in an Organized Health Care Education/Training Program
DX: E87.5 Hyperkalemia (principal)
CPT/HCPCS: 36415; 84132

== ENCOUNTER → 2024-10-26 06:50 | Outpatient (CLI) | payer MEDICARE, SELFPAY ==
[2024-09-08 11:11] VITALS: BMI 29.1
[2024-10-26 07:50] LABS: Hematocrit 40.1 % (41-53); Hemoglobin 13.4 g/dL (13.5-17.5); Mean Corpuscular HGB Conc 33.3 % (30-36); Mean Corpuscular Hemoglobin 31.4 PG (26-34); Mean Corpuscular Volume 94.4 fL (80-100); Platelet Count 115 X10^3/uL (150-400); Red Blood Cell Count 4.25 X10^6/uL (4.5-5.9); Red Cell Distribution Width 13.8 % (11.6-14.8); White Blood Cell Count 6.9 X10^3/uL (4.5-11.0)
[2024-10-26 08:25] LABS: Alanine Aminotransferase 20 IU/L (<50); Albumin 4.2 g/dL (3.5-5.0); Albumin Globulin Ratio 1.7 (1.0-2.8); Alkaline Phosphatase 108 U/L (38-126); Aspartate Aminotransferase 25 IU/L (17-59); BUN Creatinine Ratio 22.9 (6-22); Blood Urea Nitrogen 36 mg/dL (9-20); Calcium 9.4 mg/dL (8.4-10.2); Carbon Dioxide 25 mmol/L (22-32); Chloride 108 mmol/L (98-107); Estimated Glomerular Filt Rate 42 mL/min (>60); Globulin 2.5 g/dL (1.7-4.1); Glucose 82 mg/dL (80-110); HEMOLYSIS < 15 (0-50); Potassium 4.6 mmol/L (3.4-5.1); Sodium 142 mmol/L (137-145); Total Protein 6.7 g/dL (6.3-8.2)
== END ==
PROVIDERS: Family Provider Internal Medicine; PCP Internal Medicine; Referring Provider Internal Medicine Cardiovascular Disease; Visit Provider Internal Medicine Cardiovascular Disease
DX: Z79.01 Long term (current) use of anticoagulants (principal)
CPT/HCPCS: 36415; 80053; 85027

== ENCOUNTER → 2025-05-17 11:26 | Outpatient (CLI) | payer MEDICARE, SELFPAY ==
[2024-09-08 11:11] VITALS: BMI 29.1
[2025-05-17 12:09] LABS: Hematocrit 39.7 % (41-53); Hemoglobin 13.3 g/dL (13.5-17.5)
[2025-05-17 12:55] LABS: Blood Urea Nitrogen 33 mg/dL (9-20); Calcium 9.3 mg/dL (8.4-10.2); Carbon Dioxide 24 mmol/L (22-32); Chloride 106 mmol/L (98-107); Estimated Glomerular Filt Rate 50 mL/min (>60); Glucose 82 mg/dL (70-99); HEMOLYSIS 22 (0-50); Potassium 5.1 mmol/L (3.4-5.1); Sodium 140 mmol/L (137-145)
[2025-05-17 16:33] LABS: Protein (Total) Urine Random 11 mg/dL (0-12); Protein Creatinine Ratio Urine 0.29 GRAM/24H
== END ==
PROVIDERS: Family Provider Internal Medicine; PCP Internal Medicine; Referring Provider Student in an Organized Health Care Education/Training Program; Visit Provider Student in an Organized Health Care Education/Training Program
DX: D70.9 Neutropenia, unspecified (principal); N05.9 Unspecified nephritic syndrome with unspecified morphologic changes; D63.1 Anemia in chronic kidney disease; N25.81 Secondary hyperparathyroidism of renal origin; R80.9 Proteinuria, unspecified
CPT/HCPCS: 36415; 80048; 82570; 83970; 84156; 85014; 85018